=== PATIENT | male | born 1965 | race African-American/Black ===

== ENCOUNTER 2024-04-14 23:56 | Emergency (ER) | payer OTHER ==
[~2024-04-14] VITALS: Ht 172.7 cm; Wt 107.0 kg
[~2024-04-14 23:56] MED LIST: EPIN0.3P3 IM; FAMO20TA8 MT; METH4TAB95 MT
[2024-04-15 00:20] VITALS: O2SAT 99
[2024-04-15 01:03] VITALS: TEMP 36.72516
[2024-04-15 01:54] LABS: BASOPHILS % 0.9 % (0.0-2.0); EOSINOPHILS % 1.7 % (0.0-5.0); LYMPHOCYTES % 22.5 % (20.0-50.0); MEAN CORPUSCULAR HEMOGLOBIN 30.3 pg (28.0-32.0); MEAN CORPUSCULAR HGB CONC 34.1 g/dL (31.0-37.0); MEAN CORPUSCULAR VOLUME 88.9 fL (80.0-94.0); MEAN PLATELET VOLUME 9.4 fl (7.4-10.4); MONOCYTES % 6.1 % (2.0-8.0); NEUTROPHILS % 68.8 % (40.0-76.0); PLATELET 191 x1000/uL (130-400); RED BLOOD CELL COUNT 4.61 mill/uL (4.7-6.1); RED CELL DISTRIBUTION WIDTH 16.2 % (11.6-14.6); WHITE BLOOD COUNT 7.5 x1000/uL (4.5-11.0)
[2024-04-15 02:12] LABS: CHLORIDE 109 mEq/L (98-107); SODIUM 140 mEq/L (136-145)
[2024-04-15 02:13] LABS: CALCIUM 9.3 mg/dL (8.7-10.4); CARBON DIOXIDE 25 mEq/L (21-32)
[2024-04-15 02:18] LABS: GLUCOSE 109 mg/dL (70-105); UREA NITROGEN BLOOD 11 mg/dL (9-23)
[2024-04-15 02:24] LABS: TROPONIN I HIGH SENSITIVITY 111 ng/L (3.0-53)
[2024-04-15] MEDS ORDERED: MAGNESIUM/ALUMINUM HYDROXIDE/SIMETHICONE 30ML UDC PO PRN (03:00)
[2024-04-15] MEDS ORDERED: ACETAMINOPHEN 325MG TABLET PO PRN ×2 (03:00)
[2024-04-15] MEDS ORDERED: IPRATROPIUM/ALBUTEROL 0.5-3(2.5)MG/3ML NEB HHN PRN (03:00)
[2024-04-15] MEDS ORDERED: ONDANSETRON HCL 4MG/2ML INJ IV PRN (03:00)
[2024-04-15] MEDS ORDERED: GUAIFENESIN 200MG/10ML SUGAR FREE UDC PO PRN (03:00)
[2024-04-15] MEDS ORDERED: CLONIDINE 0.1MG TABLET PO PRN (03:00)
[2024-04-15] MEDS: HYDRALAZINE 20MG/ML VIAL IV PRN (03:25)
[2024-04-15 03:50] VITALS: BP 181/111; PULSE 91; RESP 17; O2SAT 97
[2024-04-15] MEDS ORDERED: MVI, ADULT NO.1 10 ML, FOLIC ACID 1 MG, THIAMINE HCL 100 MG in SODIUM CHLORIDE 0.9% 1,0... IV NR (04:00)
[2024-04-15] MEDS ORDERED: SODIUM CHLORIDE 0.9% 3ML FLUSH IVF SCH (06:00)
[2024-04-15] MEDS ORDERED: ENOXAPARIN 30MG/0.3ML SYR SUBCUT SCH (09:00)
== END 2024-04-15 03:55 | disposition left against medical advice (07) ==
LOC: ER 23:56 → EDBEDREQ 04-15 02:28 → EDBEDREQTM 04-15 02:28 → ER 04-15 03:55
DX: R06.02 Shortness of breath (principal); I10 Essential (primary) hypertension; Z86.73 Personal history of transient ischemic attack (TIA), and cerebral infarction without residual deficits; Z88.0 Allergy status to penicillin; Z88.5 Allergy status to narcotic agent; Z79.899 Other long term (current) drug therapy
CPT/HCPCS: 99285; 96374; 71045; 80048; 83880; 85025; 85379; 84484; 36415; J3490 ×2; J0360; J3411; J7030